=== PATIENT | male | born 1975 | race African-American/Black ===

== ENCOUNTER 2018-09-30 08:50 | Emergency (ER) | payer SELFPAY ==
[2018-09-30 09:03] VITALS: BP 144/79
--- NOTE | 2018-09-30 09:16 | ER Document Report ---
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 Usually resolves on it's own but this has persisted. No saddel anesthesia or radiculopathy. No fever. No IV drug use. Had to call out of work, needs work note. Has enough time to be out until saturday. Associated Symptoms: None Exacerbated by: Movement Relieved by: Denies Similar symptoms previously: Yes Recently seen / treated by doctor: No - ROS ROS below otherwise negative: Yes Systems Reviewed and Negative: Yes All other systems reviewed and negative Past Medical History - General Information source: Patient - Social History Smoking Status: Never Smoker Lives with: Family Family History: Reviewed & Not Pertinent - Medical History Medical History: Negative Surgical Hx: Negative - Immunizations Hx Diphtheria, Pertussis, Tetanus Vaccination: No Vertical Provider Document - CONSTITUTIONAL Agree With Documented VS: Yes Exam Limitations: No Limitations General Appearance: No Apparent Distress - INFECTION CONTROL TRAVEL OUTSIDE OF THE [place] IN LAST 30 DAYS: Yes - NECK Neck: Supple - BACK Back: Normal Inspection - MUSCULOSKELETAL/EXTREMETIES Musculoskeletal/Extremeties: MAEW, Tender - tender lumbar paraspinal musces bilateral, able to get up from reclined postition without difficulty and walk - NEURO Level of Consciousness: Alert, Appropriate Deep Tendon Reflexes: 2+ - princess ankle and patellar - DERM Integumentary: No Rash Course - Vital Signs Vital signs: Temp Pulse Resp BP Pulse Ox 98.2 F 58 L 14 144/79 H 99 09/30/18 09:02 09/30/18 09:02 09/30/18 09:02 09/30/18 09:02 09/30/18 09:02 Discharge - Discharge Clinical Impression: Low back strain Qualifiers: Encounter type: initial encounter Qualified Code(s): S39.012A - Strain of muscle, fascia and tendon of lower back, initial encounter Condition: Good Disposition: HOME, SELF-CARE Instructions: Acetaminophen, Ibuprofen (General) ([facility]), Low Back Pain ([facility]), Muscle Relaxers ([facility]), Muscle Strain ([facility]), Oral Narcotic Medication ([facility]), Toradol Injection ([facility]), Warm Packs ([facility]) Additional Instructions: Warm compress Tylenol up to 4000 mg a day for pain Motrin 800 mg 3 times a day for inflammation Flexeril 10 mg 3 times a day for muscle spasm Return to the emergency room for any worsening of the symptoms Prescriptions: Hydrocodone Bit/Acetaminophen [Hydrocodon-Acetaminophen 5-325] 1 each PO Q4HP PRN #10 tablet PRN Reason: Ibuprofen [Motrin 800 mg Tablet] 800 mg PO Q8HP PRN #30 tablet PRN Reason: Cyclobenzaprine HCl [Flexeril 10 Mg Tablet] 10 mg PO TIDP PRN #20 tablet PRN Reason: Forms: Return to Work Referrals: ROBERTO CHEUNG MD [ACTIVE STAFF] - Follow up as needed
[2018-09-30] MEDS ORDERED: KETOROLAC TROMETHAMINE 60 MG/2 ML SDV IM ONE (09:45)
== END 2018-09-30 10:01 | disposition home or self-care (01) ==
LOC: ER 08:50
DX: S39.012A Strain of muscle, fascia and tendon of lower back, initial encounter (principal); X50.3XXA Overexertion from repetitive movements, initial encounter
CPT/HCPCS: 99283; 96372; J1885

== ENCOUNTER 2018-10-03 14:41 | Emergency (ER) | payer SELFPAY ==
--- NOTE | 2018-10-03 15:21 | ER Document Report ---
ED Neck/Back Problem - General Chief Complaint: Back Pain Stated Complaint: BACK PAIN Time Seen by Provider: 10/03/18 15:11 Mode of Arrival: Ambulatory Information source: Patient Notes: 42-year-old male presents to ED for complaint low back pain. He states he has a history of chronic back pain but when he was bending forward a few days ago he injured it more and had severe pain was not able to stand up or move. He states he is feeling much better and would like to go back to work his light duty and rather than wait until when he was instructed to go back to work. He is able to move in all directions he is feeling better able to ambulate with a even steady gait states that the medication that he received on the sixth has improved his pain considerably. TRAVEL OUTSIDE OF THE [place] IN LAST 30 DAYS: No - HPI Patient complains to provider of: Lower back Onset: Last week Where: Work Onset: Chronic Timing: Better Quality of pain: Achy Severity: None - States he has a ache every once while but not all the time now Pain Level: Denies Context: Bending, Lifting Recent injury: Yes Associated symptoms: None - None at this moment but he does have it occasionally in his lower back Exacerbated by: Movement of trunk Relieved by: Nothing Similar symptoms previously: Yes Recently seen / treated by doctor: Yes - Related Data Allergies/Adverse Reactions: No Known Allergies Allergy (Verified 09/30/18 08:52) Past Medical History - General Information source: Patient - Social History Smoking Status: Never Smoker Frequency of alcohol use: None Drug Abuse: None Lives with: Family Family History: Reviewed & Not Pertinent Patient has suicidal ideation: No Patient has homicidal ideation: No - Past Medical History Cardiac Medical History: Reports: None Pulmonary Medical History: Reports: None EENT Medical History: Reports: None Neurological Medical History: Reports: None Endocrine Medical History: Reports: None Renal/ Medical History: Reports: None Malignancy Medical History: Reports None GI Medical History: Reports: None Musculoskeletal Medical History: Reports Hx Musculoskeletal Deformity, Reports Hx Musculoskeletal Trauma Skin Medical History: Reports None Psychiatric Medical History: Reports: None Traumatic Medical History: Reports: None Infectious Medical History: Reports: None Surgical Hx: Negative Past Surgical History: Reports: None - Immunizations Hx Diphtheria, Pertussis, Tetanus Vaccination: No Review of Systems - Review of Systems Notes: REVIEW OF SYSTEMS: CONSTITUTIONAL : Denies fever, chills, or sweats. Denies recent illness. EENT: Denies eye, ear, throat, or mouth pain or symptoms. Denies nasal or sinus congestion or discharge. Denies throat, tongue, or mouth swelling or difficulty swallowing. CARDIOVASCULAR: Denies chest pain. Denies palpitations or racing or irregular heart beat. Denies ankle edema. RESPIRATORY: Denies cough, cold, or chest congestion. Denies shortness of breath, difficulty breathing, or wheezing. GASTROINTESTINAL: Denies abdominal pain or distention. Denies nausea, vomiting , or diarrhea. Denies blood in vomitus, stools, or per rectum. Denies black, tarry stools. Denies constipation. GENITOURINARY: Denies difficulty urinating, painful urination, burning, frequency, blood in urine, or discharge. MUSCULOSKELETAL: States his back pain is much better it is just intermittently now. States he is able to stand up and walk with no pain. He states sometimes when he bends or turns around way he does get a bad twinge. He states that the chest to lift anything he gets a pain. SKIN: Denies rash, lesions or sores. HEMATOLOGIC : Denies easy bruising or bleeding. LYMPHATIC: Denies swollen, enlarged glands. NEUROLOGICAL: Denies confusion or altered mental status. Denies passing out or loss of consciousness. Denies dizziness or lightheadedness. Denies headache. Denies weakness or paralysis or loss of use of either side. Denies problems with gait or speech. Denies sensory loss, numbness, or tingling. Denies seizures. PSYCHIATRIC: Denies anxiety or stress. Denies depression, suicidal ideation, or homicidal ideation. ALL OTHER SYSTEMS REVIEWED AND NEGATIVE. Dictation was performed using [employer] voice recognition software PHYSICAL EXAMINATION: GENERAL: Well-appearing, well-nourished and in no acute distress. HEAD: Atraumatic, normocephalic. EYES: Pupils equal round and reactive to light, extraocular movements intact, sclera anicteric, conjunctiva are normal. ENT: Nares patent, oropharynx clear without exudates. Moist mucous membranes. NECK: Normal range of motion, supple without lymphadenopathy LUNGS: Breath sounds clear to auscultation bilaterally and equal. No wheezes rales or rhonchi. HEART: Regular rate and rhythm without murmurs ABDOMEN: Soft, nontender, nondistended abdomen. No guarding, no rebound. No masses appreciated. Musculoskeletal: Normal range of motion, no pitting or edema. No cyanosis. No point tenderness to the back at this time patient has full range of motion. States when he bends very far over it does hurt some still. NEUROLOGICAL: Cranial nerves grossly intact. Normal speech, normal gait. Normal sensory, motor exams PSYCH: Normal mood, normal affect. SKIN: Warm, Dry, normal turgor, no rashes or lesions noted. Physical Exam - Vital signs Vitals: Temp Pulse Resp BP Pulse Ox 97.9 F 70 16 139/84 H 98 10/03/18 15:23 10/03/18 15:23 10/03/18 15:23 10/03/18 15:23 10/03/18 15:23 Course - Re-evaluation Re-evalutation: 10/03/18 15:40 Patient was discharged home with instructions to continue his ibuprofen and muscle relaxers. He was given instructions on warm packs ice packs and back exercises. He was given a note to go back to work light duty only until cleared by primary care doctor. Patient verbalized understanding and agreement with treatment plan. After performing a Medical Screening Examination, I estimate there is LOW risk for EXPANDING OR RUPTURED ABDOMINAL AORTIC ANEURYSM, CAUDA EQUINA SYNDROME, EPIDURAL MASS LESION, or HERNIATED DISK CAUSING SEVERE SPINAL STENOSIS, thus I consider the discharge disposition reasonable. I have reevaluated this patient multiple times and no significant life threatening changes are noted. The patient and I have discussed the diagnosis and risks, and we agree with discharging home and close follow-up. We also discussed returning to the Emergency Department immediately if new or worsening symptoms occur with the understanding that symptoms and presentations can change. We have discussed the symptoms which are most concerning (e.g., saddle anesthesia, urinary or bowel incontinence or retention, changing or worsening pain) that necessitate immediate return. - Vital Signs Vital signs: Temp Pulse Resp BP Pulse Ox 97.9 F 70 16 139/84 H 98 10/03/18 15:23 10/03/18 15:23 10/03/18 15:23 10/03/18 15:23 10/03/18 15:23 Discharge - Discharge Clinical Impression: Back pain Qualifiers: Back pain location: low back pain Chronicity: chronic Back pain laterality: bilateral Sciatica presence: without sciatica Qualified Code(s): M54.5 - Low back pain Condition: Stable Disposition: HOME, SELF-CARE Instructions: Family Physicians / Practices Additional Instructions: LOW BACK PAIN: Three out of every four people will have an episode of disabling back pain during their lifetime. Most commonly the pain is due to straining of the muscles and ligaments in the low back. Usual treatment includes: (1) Rest on a firm surface. Avoid lying on your stomach. (2) Ice pack the painful area. After a few days, gentle heat may be used intermittently to relax the area, or ice packs can be continued. (3) Medication may be needed -- muscle relaxers and antiinflammatory medicines are commonly used. (4) As the back improves, exercises are prescribed to strengthen the back and abdominal muscles. Your doctor will advise you on the proper care for your back at each stage in your recovery. You may be better in a few days -- or healing may take several weeks. If new symptoms of a "herniated disc" (radiation of pain, numbness, or tingling down the back of the leg or weakness in the leg) occur, you should be re-examined. Further testing may be necessary. Stretching Exercises for the Back The physician has recommended that you begin stretching exercises for your back. These are often used even while the back is painful. However, you should notify the physician if the activities seem to increase your pain. PELVIC TILT: Lie flat on your back with knees bent. Tighten your stomach and buttock muscles so it flattens your lower back against the floor. Hold 10 seconds. Repeat 10 times, twice daily. KNEE RAISE: Lying on the back with knees bent, raise one knee to your chest, then the other. Hold both knees against the chest 10 seconds, then lower one knee at a time. Repeat 10 times, twice daily. PARTIAL TRUNK RAISE: Lie face down, arms at your sides. Keeping your waist on the floor, use your arms raise your chest up. Support yourself on your elbows for 30 seconds. Repeat twice daily, increasing the time to two minutes as you recover. ICE PACKS: Apply ice packs frequently against the painful area. Many different schedules are recommended, such as "20 minutes on, 20 minutes off" or "one hour ice, two hours rest." If you need to work, you may need to go longer between ice treatments. You should plan to have the area ice packed AT LEAST one fourth of the time. The ice should be applied over the wrap, tape, or splint, or over a layer of cloth -- not directly against the skin. Some ice bags have a built-in cloth and can be put directly on the skin. WARM PACKS: After approximately two days, apply gentle heat (such as a heating pad or hot water bottle) for about 20 to 30 minutes about every two hours -- at least four times daily. Warmth and elevation will help you make a more rapid recovery , and will ease the pain considerably. Do not use HOT heat, and never apply heat for longer than 30 minutes. The continuous heat can invisibly damage skin and muscles -- even when no burn is seen on the surface. Damaged muscles can make you MORE sore. FOLLOW-UP CARE: If you have been referred to a physician for follow-up care, call the physician s office for an appointment as you were instructed or within the next two days. If you experience worsening or a significant change in your symptoms, notify the physician immediately or return to the Emergency Department at any time for re-evaluation. Forms: Elevated Blood Pressure, Special Work Note Referrals: [facility] [Provider Group] - Follow up as needed
[2018-10-03 15:24] VITALS: BP 139/84
== END 2018-10-03 15:47 | disposition home or self-care (01) ==
LOC: ER 14:41
DX: G89.29 Other chronic pain (principal); M54.5 Low back pain
CPT/HCPCS: 99283

== ENCOUNTER 2020-04-28 16:52 | Emergency (ER) | payer OTHER ==
[2020-04-28] MEDS ORDERED: KETOROLAC TROMETHAMINE 60 MG/2 ML SDV IM ONE (18:05)
[2020-04-28] MEDS ORDERED: METHYLPREDNISOLONE INJ 125 MG/2 ML SDV IM ONE (18:05)
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
[2020-04-28 18:48] VITALS: BP 142/75
== END 2020-04-28 18:49 | disposition home or self-care (01) ==
LOC: ER 16:52
DX: M54.42 Lumbago with sciatica, left side (principal); G89.29 Other chronic pain; M54.9 Dorsalgia, unspecified
CPT/HCPCS: 99283; 96372; J1885; J2930

== ENCOUNTER 2020-09-21 16:23 | Emergency (ER) | payer OTHER ==
[2020-09-21 16:36] VITALS: BP 155/85
== END 2020-09-21 17:46 | disposition left against medical advice (07) ==
LOC: ER 16:23
DX: Z53.21 Procedure and treatment not carried out due to patient leaving prior to being seen by health care provider (principal); M54.9 Dorsalgia, unspecified